=== PATIENT | male | born 1950 ===

== ENCOUNTER 2017-09-26 08:57 | Outpatient (CLI) | payer OTHER | END 2017-09-26 09:09 | disposition home or self-care (01) | LOC: TOM 08:57 | DX: R10.12 Left upper quadrant pain (principal); R10.32 Left lower quadrant pain | CPT/HCPCS: 74178; Q9965 ==

== ENCOUNTER 2017-09-27 13:56 | Outpatient (CLI) | payer OTHER | END 2017-09-27 14:08 | disposition home or self-care (01) | LOC: SONOGRAMA 13:56 | DX: E04.8 Other specified nontoxic goiter (principal) ==

== ENCOUNTER 2018-02-07 06:21 | Day surgery (SDC) | payer OTHER ==
[~2018-02-07 06:21] MED LIST: AVAPRO75 MG PO; PERCOCET 5-3251 EACH PO; VALIUM
== END 2018-02-07 15:15 | disposition home or self-care (01) ==
LOC: CIR.AMB 06:21
DX: K40.90 Unilateral inguinal hernia, without obstruction or gangrene, not specified as recurrent (principal)

== ENCOUNTER 2021-08-10 13:52 | Outpatient (CLI) | payer OTHER | END 2021-08-10 14:03 | disposition home or self-care (01) | LOC: MRI 13:52 | PROVIDERS: ATTEND Anesthesiology | DX: M25.561 Pain in right knee (principal); M25.461 Effusion, right knee; M17.11 Unilateral primary osteoarthritis, right knee | CPT/HCPCS: 73718 ==

== ENCOUNTER → 2021-09-22 12:32 | Outpatient (CLI) | payer OTHER | END | disposition home or self-care (01) | LOC: RAD 12:32 | PROVIDERS: ATTEND Internal Medicine Rheumatology | DX: M23.304 Other meniscus derangements, unspecified medial meniscus, left knee (principal); M51.27 Other intervertebral disc displacement, lumbosacral region | CPT/HCPCS: 73718 ==

== ENCOUNTER 2022-08-10 12:01 | Outpatient (CLI) | payer OTHER | END 2022-08-10 12:10 | disposition home or self-care (01) | LOC: TOM 12:01 | PROVIDERS: ATTEND Internal Medicine Pulmonary Disease | DX: R06.02 Shortness of breath (principal); R05.3 Chronic cough; U09.9 Post COVID-19 condition, unspecified ==

== ENCOUNTER 2022-10-04 12:42 | Outpatient (CLI) | payer OTHER | END 2022-10-04 12:45 | disposition home or self-care (01) | LOC: MRI 12:42 | DX: M23.91 Unspecified internal derangement of right knee (principal) | CPT/HCPCS: 73718 ==